=== PATIENT | female | born 1990 ===

== ENCOUNTER 2019-07-04 10:20 | Day surgery (SDC) | payer MEDICARE, MEDICAID ==
[~2019-07-04] VITALS: Ht 165.1 cm; Wt 106.6 kg
[2019-07-04] VITALS (13 sets, daily range): BP systolic 100–131; BP diastolic 57–77
[~2019-07-04 10:20] MED LIST: NKM
[2019-07-04] MEDS ORDERED: CIPRO500 MG PO (11:02)
[2019-07-04] MEDS ORDERED: Iothalamate Meglumine 60% 30ML INJ ONE (12:04)
--- NOTE | 2019-07-04 12:38 | Pre-Procedure Note/Attestation ---
Pre-Procedure Note/Attestation Complete Prior to Procedure Planned Procedure: left Procedure Narrative: Left ESWL RIRS Left Indications for Procedure Pre-Operative Diagnosis: left renal stone Attestation I attest that I discussed the nature of the procedure; its benefits; risks and complications; and alternatives (and the risks and benefits of such alternatives ), prior to the procedure, with the patient (or the patient's legal service liaison representative). I attest that, if there was a reasonable possibility of needing a blood transfusion, the patient (or the patient's legal service liaison representative) was given the [facility] standardized written summary, pursuant to the [place] [employer] Blood Safety Act ([place] Health and Safety Code # 1645, as amended). I attest that I re-evaluated the patient just prior to the surgery and that there has been no change in the patient's H&P, except as documented below: Avni Malik MD Jul 04, 2019 12:38
[2019-07-04] MEDS ORDERED: Sodium Chloride 10ml vial INJ ONE (12:40)
[2019-07-04] MEDS ORDERED: Propofol 200mg/20ml IV ONE ×2 (12:40→13:44)
[2019-07-04] MEDS ORDERED: Lidocaine 1% Plain 30 ml INJ ONE ×2 (12:40→13:44)
[2019-07-04] MEDS ORDERED: Lidocaine 1% MPF 10mg/ml 5ml ONE (12:40)
[2019-07-04] MEDS ORDERED: Dexamethasone 4mg/ml vial ONE (12:40)
[2019-07-04] MEDS ORDERED: fentaNYL 100 mcg/2 mL IV ONE (13:00)
[2019-07-04] MEDS ORDERED: Sterile Water Irrig 1000ml IRRIG ONE (13:00)
[2019-07-04] MEDS ORDERED: Ketorolac 30mg Inj ONE (13:00)
[2019-07-04] MEDS ORDERED: NS Irrig 1000ml ONE (13:00)
[2019-07-04] MEDS ORDERED: LR 1000ml ONE (13:00)
[2019-07-04] MEDS ORDERED: NS Irrig 4000ml IRRIG ONE (13:30)
[2019-07-04] MEDS ORDERED: LR 1000ml 1,000 ML IVLG SCH ×2 (13:39)
[2019-07-04] MEDS ORDERED: Labetalol 5mg/ml 20ml vial IV PRN ×2 (13:45)
[2019-07-04] MEDS ORDERED: HYDROcodone/Acetamin 7.5/325 tab ORAL PRN ×2 (13:45)
[2019-07-04] MEDS ORDERED: Metoclopramide 10mg/2ml Inj IVP PRN ×2 (13:45)
[2019-07-04] MEDS ORDERED: oxyCODONE HCL/Acetaminophen 5/325mg ORAL PRN ×2 (13:45)
[2019-07-04] MEDS ORDERED: Midazolam 2mg/2ml Inj IVP PRN ×2 (13:45)
[2019-07-04] MEDS ORDERED: HYDROcodone/Acetamin 5/325 tab ORAL PRN ×3 (13:45→14:15)
[2019-07-04] MEDS ORDERED: Meperidine 50mg/ml Inj(FOR RIGORS ONLY) IVP PRN ×2 (13:45)
[2019-07-04] MEDS ORDERED: Atropine Sulfate 0.4mg/ml inj IVP PRN ×2 (13:45)
[2019-07-04] MEDS ORDERED: LORazepam Inj 2mg/ml 1ml IV PRN ×2 (13:45)
[2019-07-04] MEDS ORDERED: fentaNYL 100 mcg/2 mL IV PRN ×2 (13:45)
[2019-07-04] MEDS ORDERED: Hydromorphone 0.5mg/0.5ml inj IVP PRN ×2 (13:45)
[2019-07-04] MEDS ORDERED: Ketorolac 30mg Inj IV PRN ×4 (13:45)
[2019-07-04] MEDS ORDERED: DiphenhydrAMINE 50mg/ml Inj IVP PRN ×2 (13:45)
--- NOTE | 2019-07-04 13:48 | Anethesia Preoperative Eval ---
Anesthesia Pre-op PMH/ROS General Date of Evaluation: Jul 04, 2019 Time of Evaluation: 13:02 Anesthesiologist: Keila ASA Score: ASA 2 Mallampati Score Class I : Soft palate, uvula, fauces, pillars visible Class II: Soft palate, uvula, fauces visible Class III: Soft palate, base of uvula visible Class IV: Only hard plate visible Mallampati Classification: Class I Surgeon: King Diagnosis: Abd Pain Surgical Procedure: L ESWL and Stent Placement Anesthesia History: none Family History: no anesthesia problems Allergies: Coded Allergies: CEFTRIAXONE (Verified Allergy, Intermediate, swelling; SOB; itchiness, ) PENICILLINS (Verified Allergy, Intermediate, unknown, 07/03/19) " as tested by my old urologist" Medications: see eMAR Patient NPO?: Yes Past Medical History PSxH Narrative: Pilonidal Cyst, R Ovarian Cyst, R Wrist Cyst, L Leg SX Anesthesia Pre-op Phys. Exam Physician Exam Last Vital Signs Date Time Temp Pulse Resp B/P (MAP) Pulse Ox O2 Delivery O2 Flow Rate FiO2 07/04/19 11:10 Room Air 07/04/19 11:09 98.3 69 18 119/67 100 Constitutional: NAD Neurologic: CN 2-12 intact Cardiovascular: RRR Respiratory: CTA Gastrointestinal: S/NT/ND Airway Exam Mallampati Score: Class I MO: full ROM: full Teeth: intact Anesthesia Pre-op A/P Labs Urine Test Test 07/04/19 10:40 Urine HCG, Qualitative Negative (NEGATIVE) Risk Assessment & Plan Assessment: ASA 2 Plan: TIVA Status Change Before Surgery: No Pre-Antibiotics Dru Mg Vancomycin, 80 Mg IV Given Within 1 Hr of Incision: Yes Time Given: 13:11 Domingo Pedraza MD Jul 04, 2019 13:48
--- NOTE | 2019-07-04 13:49 | Immediate Post-Op Evaluation ---
Immediate Post-Op Evalulation Immediate Post-Op Evalulation Procedure: L ESWL and Stent Placement Date of Evaluation: Jul 04, 2019 Time of Evaluation: 14:26 IV Fluids: 1000 LR Blood Products: 0 Estimated Blood Loss: 7 Urinary Output: 0 Blood Pressure Systolic: 123 Blood Pressure Diastolic: 72 Pulse Rate: 80 Respiratory Rate: 16 O2 Sat by Pulse Oximetry: 100 Pain Score (1-10): 2 Nausea: No Vomiting: No Complications 0 Patient Status: awake, reacts, patent, none Hydration Status: adequate Dru Mg Vancomycin, 80 Mg IV Given Within 1 Hr of Incision: Yes Time Given: 13:11 Domingo Pedraza MD Jul 04, 2019 13:49
--- NOTE | 2019-07-04 13:50 | 48 Hour Post Anesthesia Eval ---
Post Anesthesia Evaluation Procedure: L ESWL and Stent Placement Date of Evaluation: Jul 04, 2019 Time of Evaluation: 16:42 Blood Pressure Systolic: 117 0: 68 Pulse Rate: 84 Respiratory Rate: 18 Temperature (Fahrenheit): 98.6 O2 Sat by Pulse Oximetry: 100 Airway: patent Nausea: No Vomiting: No Pain Intensity: 2 Hydration Status: adequate Cardiopulmonary Status: Stable Mental Status/LOC: patient returned to baseline Follow-up Care/Observations: 0 Post-Anesthesia Complications: 0 Follow-up care needed: ready to discharge Domingo Pedraza MD Jul 04, 2019 13:50
--- NOTE | 2019-07-04 14:03 | Brief Operative Note ---
Immediate Post Operative Note Operative Note Pre-op Diagnosis: left renal stone Procedure: eswl rirs left Post-op Diagnosis: same Post-op Diagnosis: same as pre-op Surgeon: Lalo Malik Anesthesia: general Specimen: none Complications: none Condition: stable Fluids: 500 Estimated Blood Loss: minimal Drains: none Implant(s) used?: No Avni Malik MD Jul 04, 2019 14:03
[2019-07-04] MEDS ORDERED: D5 1/2NS 1,000 ML IV SCH (14:15)
[2019-07-04] MEDS ORDERED: HYDROmorphone 1mg/ml Carpuject SUBQ PRN (14:15)
[2019-07-04] MEDS ORDERED: Tylenol #3 tab (300mg/30mg) ORAL PRN (14:15)
--- NOTE | 2019-07-06 03:45 | Operative Note - Dictated ---
DATE OF OPERATION: 07/04/2019 NOTE: UNCLEAR AUDIO PREOPERATIVE DIAGNOSIS: Left renal stone. POSTOPERATIVE DIAGNOSIS: Left renal stone. OPERATIONS: Cystoscopy, retrograde pyelogram, flexible ureteroscopy with extracorporeal shock wave lithotripsy to left renal stone, double-J stent placement. OPERATED BY: Avni Malik M.D. ANESTHESIA: General. FINDINGS: Small stones in the upper of the duplicated collecting system of the left kidney. INDICATION FOR SURGERY: The patient is well known to me. 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 Treatment options were explained to her in great length including all potential complications. She signed the consent. PROCEDURE IN DETAIL: She was brought to the operating room, placed in lithotomy position. Prepped and draped in standard fashion. Under general anesthesia, cystoscope was introduced into the bladder. The left ureter was cannulated showing bifurcation of the collecting system in between the lower and upper of the kidney. Flexible ureteroscope was introduced. The collecting system was carefully examined for submucosal stones in the collecting system on the lateral which was not approachable via lithotripsy. Rest of the kidney was clean. Double-J stent was placed. . The patient tolerated the procedure well. No evidence of complications. There was no specimen. Avni Malik M.D. DR: HOLDEN/BEAN JOB#: [id number] CC:
== END 2019-07-04 16:15 | disposition home or self-care (01) ==
LOC: SUR 10:20
DX: N20.0 Calculus of kidney (principal); Z88.0 Allergy status to penicillin
CPT/HCPCS: 52005; 52356; 81025; J1100; J1885; J1940; J2001; J2250; J2405; J2704; J2765; J3010; J3370; J7030; J7120; Q9961; 94003; 94150